=== PATIENT | male | born 1955 | race Caucasian/White ===

== ENCOUNTER 2021-10-06 12:05 | Inpatient (IN) | payer OTHER, SELFPAY ==
[~2021-10-06] VITALS: Ht 177.8 cm; Wt 76.7 kg
[~2021-10-06 12:05] MED LIST: ACET-9525 PO; BICA50TA47 PO; FERR325E14 PO; LACT10SO11 PO; PANT40PK PO; ROC1PM IV
--- NOTE | 2021-10-06 12:05 | NUR ---
BIBA BLS TO ER BED 7
[2021-10-06 12:13] VITALS: BP 96/72
--- NOTE | 2021-10-06 12:22 | NUR ---
IV ESTABLISHED, BLOOD COLLECTED AND WALKED TO LAB.
--- NOTE | 2021-10-06 12:29 | NUR ---
LINA COLLECTED AND WALKED TO LAB
[2021-10-06] MEDS ORDERED: NACL 0.9% 2,000 ML IV ONE (12:40)
--- NOTE | 2021-10-06 12:40 | NUR ---
Pt states unable to urinate at this time; states enlarged prostate. Urinal provided at bedside per request; pt will attempt to void in 20 mins.
--- NOTE | 2021-10-06 12:46 | NUR ---
DR. WILEY EVALUATING PATIENT AT BEDSIDE.
[2021-10-06] MEDS ORDERED: PANTOPRAZOLE 40 MG INJ VIAL IVP ONE (12:50)
[2021-10-06] MEDS ORDERED: cefTRIAXone 1,000 MG VIAL ONE (13:07)
--- NOTE | 2021-10-06 13:30 | NUR ---
PATIENT REPORTS L INDEX FINGER "PINS AND NEEDLES" SENSATION, DR. WILEY MADE AWARE. PENDING LAB RESULTS FOR TX.
[2021-10-06 13:45] LABS: BASOPHILS % (AUTO) 0.1 % (0.0-2.0); EOSINOPHILS % (AUTO) 0.2 % (0.0-4.0); HEMATOCRIT 20.5 % (36-52); LYMPHOCYTES # (AUTO) 0.6 K/uL (2.0-11.5); LYMPHOCYTES % (AUTO) 3.1 % (20.5-51.1); MEAN CORPUSCULAR HEMOGLOBIN 24 pg (27-31); MEAN CORPUSCULAR HGB CONC 32 g/dL (33-37); MEAN CORPUSCULAR VOLUME 76.2 fL (80-94); MONOCYTES # (AUTO) 0.3 K/uL (0.8-1.0); MONOCYTES % (AUTO) 1.6 % (1.7-9.3); NEUTROPHILS # (AUTO) 18.8 K/uL (1.8-7.7); PLATELET COUNT (AUTO) 236 K/uL (140-450); RED BLOOD CELL COUNT(AUTO) 2.69 MIL/uL (4.20-6.10); RED CELL DISTRIBUTION WIDTH 21.2 % (11.6-13.7); WHITE BLOOD COUNT (AUTO) 19.8 K/uL (4.8-10.8)
[2021-10-06 13:48] LABS: ALBUMIN 1.3 g/dL (3.4-5.0); ANION GAP 16.9 (8-16); POTASSIUM 5.9 mmol/L (3.5-5.1); TOTAL BILIRUBIN 0.3 mg/dL (0.0-1.0)
[2021-10-06 13:52] LABS: HEMOGLOBIN 6.5 g/dL (12.0-18.0)
[2021-10-06] MEDS ORDERED: HYDROcodone/APAP 5/325 MG 1 TAB TAB PO PRN (14:10)
[2021-10-06] MEDS ORDERED: ONDANSETRON 4 MG/2 ML VIAL IVP PRN (14:10)
[2021-10-06] MEDS ORDERED: MORPHINE SULFATE 2 MG/ML SYR IVP PRN (14:10)
[2021-10-06] MEDS ORDERED: ACETAMINOPHEN 325 MG TAB PO PRN (14:10)
[2021-10-06] MEDS ORDERED: MULT-2611 PO (14:17)
[2021-10-06] MEDS ORDERED: ONDA-188 PO (14:17)
[2021-10-06] MEDS ORDERED: ZINC50TA76 PO (14:17)
[2021-10-06] MEDS ORDERED: CHOL200072 PO (14:17)
[2021-10-06] MEDS ORDERED: TRAM50TA1 PO (14:17)
[2021-10-06] MEDS ORDERED: VITB12 PO (14:17)
[2021-10-06] MEDS ORDERED: DEXT1DRO4 OP (14:17)
[2021-10-06] MEDS ORDERED: ASCO-5 PO (14:17)
--- NOTE | 2021-10-06 14:19 | NUR ---
DR. KAPADIA EVALUATING PATIENT AT BEDSIDE.
--- NOTE | 2021-10-06 14:48 | NUR ---
RECEIVED REPORT FROM ED NURSE. AWAITING TRANSFER TO [facility]
[2021-10-06] MEDS: NACL 0.9% 1,000 ML IV SCH (15:07)
--- NOTE | 2021-10-06 15:10 | NUR ---
Patient will be admitted to care of DR KAPADIA. Admited to TELEMETRY. Will go to room 124A. Belongings list completed. Report to LEIGH MCDONALD.
--- NOTE | 2021-10-06 15:11 | NUR ---
Chart checked and completed. The patient's care was reviewed and supervised by Hyun Broussard RN.
--- NOTE | 2021-10-06 15:15 | NUR ---
PT TRANSFERRED TO MST 124A. PT STABLE
[2021-10-06 16:00] VITALS: BP 128/64
[2021-10-06] MEDS ORDERED: SUPREP BOWEL PREP KIT 354 ML SOLN.RECON PO ONE (18:15)
[2021-10-06] MEDS: SODIUM ZIRCONIUM CYCLOSILICATE 10 GM POWD.PACK PO SCH (18:28)
[2021-10-06] MEDS ORDERED: bisacodyL 5 MG TABEC PO SCH (18:30)
[2021-10-06] MEDS: SUPREP BOWEL PREP KIT 354 ML SOLN.RECON PO SCH ×2 (18:30→19:49)
--- NOTE | 2021-10-06 18:54 | NUR ---
PT REFUSED SUPREP. STATING "MY STOMACH ISN'T THAT BIG, I CANT DRINK THAT" Addendum: 10/06/21 at 1855 by Yanci Lewis RN RN NEHA MALDONADO
--- NOTE | 2021-10-06 19:38 | NUR ---
ENDORSED PT TO WEB OPERATIONS MANAGER NURSE.
--- NOTE | 2021-10-06 19:50 | NUR ---
PT AGREED TO DRINK BOWL PREP TOLERATED.
[2021-10-06 20:00] VITALS: BP 94/57
[2021-10-06 20:14] LABS: ANION GAP 19.1 (8-16); CARBON DIOXIDE 19.7 mmol/L (21-32); POTASSIUM 5.8 mmol/L (3.5-5.1)
[2021-10-06] MEDS: PANTOPRAZOLE 40 MG INJ VIAL IVP SCH (20:40)
[2021-10-06] MEDS: ALBUMIN HUMAN 25% 100 ML IV SCH (20:42)
--- NOTE | 2021-10-06 21:30 | NUR ---
messaged Dr almonte on potassium level urine output and renal US results
[2021-10-07] VITALS: BP 120/81
[2021-10-07 00:09] LABS: APPEARANCE,URINE CLOUDY (CLEAR); BILIRUBIN,URINE NEGATIVE (NEGATIVE); BLOOD, URINE 3+ (NEGATIVE); LEUKOCYTE ESTERASE ,URINE 3+ (NEGATIVE); NITRITE, URINE NEGATIVE (NEGATIVE); UGLUCOSE NEGATIVE (NEGATIVE)
[2021-10-07 00:10] LABS: COLOR,URINE STRAW (YELLOW)
[2021-10-07 00:12] LABS: RBC,URINE 11-20 (MOD) /HPF (0-5); WBC,URINE TOO MANY TO COUNT /HPF (0-5)
[2021-10-07] MEDS ORDERED: bisacodyL 5 MG TABEC PO SCH (00:15)
[2021-10-07] MEDS: NACL 0.9% 1,000 ML IV SCH (01:19)
[2021-10-07] MEDS: SUPREP BOWEL PREP KIT 354 ML SOLN.RECON PO SCH (01:26)
--- NOTE | 2021-10-07 02:41 | NUR ---
1 unit PRBC given. pt tolerarated it well. no reactgions noted.
[2021-10-07 04:00] VITALS: BP 123/69
[2021-10-07] MEDS: ALBUMIN HUMAN 25% 100 ML IV SCH ×2 (04:47→12:40)
[2021-10-07] MEDS ORDERED: SODIUM PHOSPHATE 118 ML ENEM RC SCH ×4 (06:00→07:30)
--- NOTE | 2021-10-07 06:23 | NUR ---
notified Dr Hernandez that pt BM not clear yet only had 1 large BM last night 1 small one this am after the fleets enema
--- NOTE | 2021-10-07 06:33 | NUR ---
dr Lovell messaged re preli result of BC - gm neg lay on gram stain . awaiting call back
--- NOTE | 2021-10-07 07:05 | NUR ---
PATIENT HAS BEEN SCREENED AND CATEGORIZED HIGH NUTRITION RISK. PATIENT WILL BE SEEN WITHIN 1-2 DAYS OF ADMISSION. 10/07/21-10/08/21 NANCY JOSEPH MS, RDN
--- NOTE | 2021-10-07 07:30 | NUR ---
RECEIVED REPORT FROM LIVESTOCK FEEDER NURSE.
[2021-10-07] MEDS ORDERED: MIDAZOLAM 5 MG/5 ML VIAL ONE (07:34)
[2021-10-07] MEDS ORDERED: fentaNYL citrate 0.05 MG/ML VIAL ONE (07:34)
--- NOTE | 2021-10-07 08:01 | NUR ---
PT TAKEN TO OR FOR COLONOSCOPY AND POSSIBLE EGD. PT STABLE
[2021-10-07] MEDS: PANTOPRAZOLE 40 MG INJ VIAL IVP SCH ×2 (08:02→20:36)
[2021-10-07] MEDS: SODIUM ZIRCONIUM CYCLOSILICATE 10 GM POWD.PACK PO SCH ×3 (08:02→17:30)
[2021-10-07] MEDS: MIDAZOLAM 2 MG/2 ML VIAL IVP SCH ×2 (08:05→08:30)
[2021-10-07] MEDS: fentaNYL citrate 0.05 MG/ML VIAL IVP SCH ×2 (08:06→08:30)
[2021-10-07 08:22] LABS: BASOPHILS % (AUTO) 0.1 % (0.0-2.0); LYMPHOCYTES % (AUTO) 3.7 % (20.5-51.1); PLATELET COUNT (AUTO) 149 K/uL (140-450)
[2021-10-07 08:34] LABS: ALBUMIN 1.9 g/dL (3.4-5.0); ANION GAP 22.9 (8-16); CARBON DIOXIDE 18.6 mmol/L (21-32); CREATININE 3.3 mg/dL (0.6-1.3); POTASSIUM 4.5 mmol/L (3.5-5.1); TOTAL BILIRUBIN 0.5 mg/dL (0.0-1.0)
--- NOTE | 2021-10-07 08:41 | NUR ---
PT RETURNED FROM COLONOSCOPY. UNABLE TO PERFORM, RESCHEDULED FOR 0800 10/08
[2021-10-07 08:55] LABS: EOSINOPHILS # (AUTO) 1.1 K/uL (0-0.4); EOSINOPHILS % (AUTO) 6.5 % (0.0-4.0); HEMATOCRIT 20.5 % (36-52); LYMPHOCYTES # (AUTO) 0.6 K/uL (2.0-11.5); MEAN CORPUSCULAR HEMOGLOBIN 26 pg (27-31); MEAN CORPUSCULAR HGB CONC 32 g/dL (33-37); MEAN CORPUSCULAR VOLUME 80.2 fL (80-94); MONOCYTES # (AUTO) 0.2 K/uL (0.8-1.0); MONOCYTES % (AUTO) 1.2 % (1.7-9.3); NEUTROPHILS # (AUTO) 15.3 K/uL (1.8-7.7); NEUTROPHILS % (AUTO) 88.5 % (42.2-75.2); RED BLOOD CELL COUNT(AUTO) 2.56 MIL/uL (4.20-6.10); RED CELL DISTRIBUTION WIDTH 22.7 % (11.6-13.7); WHITE BLOOD COUNT (AUTO) 17.3 K/uL (4.8-10.8)
[2021-10-07 08:59] LABS: HEMOGLOBIN 6.6 g/dL (12.0-18.0)
[2021-10-07] MEDS ORDERED: NACL 0.9% 1,000 ML IV SCH (09:15)
--- NOTE | 2021-10-07 09:16 | NUR ---
(10/07/21) RD INITIAL ASSESSMENT COMPLETED PLEASE REFER TO NUTRITION ASSESSMENT UNDER CARE ACTIVITY FOR ESTIMATED NUTRITIONAL NEEDS. RD RECOMMENDATIONS: 1. CONTINUE CLEAR LIQUID DIET MEDICALLY APPROPRIATE 2. CONSIDER REGULAR DIET ONCE MEDICALLY APPROPRIATE TO START ORAL DIET 3. CONSULT RDN PRN. 4. RD WILL F/U 2-3 DAYS; HIGH RISK. NANCY JOSEPH MS, RDN
[2021-10-07] MEDS ORDERED: SODIUM BICARBONATE 8.4% 150 MEQ in DEXTROSE 5% 1,000 ML IV SCH (10:00)
[2021-10-07 10:18] LABS: URINE SODIUM, RANDOM 147 mmol/l (40-220)
[2021-10-07 12:00] VITALS: BP 118/70
[2021-10-07] MEDS: MAGNESIUM CITRATE 300 ML BTL PO SCH ×2 (12:23→20:35)
--- NOTE | 2021-10-07 12:42 | NUR ---
PHARMACY TO BRING PT MEDICATION. ATTEMPTED TO CALL AND WALK TO PHARMACY WITH NO ANSWER. WILL TRY AGAIN AFTER LUNCH BREAK.
[2021-10-07] MEDS: bisacodyL 5 MG TABEC PO SCH ×2 (13:10→20:37)
[2021-10-07] MEDS: SODIUM BICARBONATE 8.4% 50 MEQ in NACL 0.45% 1,000 ML IV SCH (13:10)
--- NOTE | 2021-10-07 13:10 | NUR ---
OBTAINED IVF FROM PHARMACY. SUPERINTENDENT COMMISSARY STATED IT WAS NOT BROUGHT TO [facility] SINCE THEY WERE NOT CALLED AND INSTRUCTED TO MAKE IT.
--- NOTE | 2021-10-07 14:43 | NUR ---
PROCEDURE POSTPONED. PT NOTIFIED. PT NPO. WILL RESUME BOWEL PREP POST PROCEDURE
[2021-10-07 16:00] VITALS: BP 116/65
--- NOTE | 2021-10-07 17:57 | NUR ---
PT RESTING IN BED. NO S/S OF DISTRESS. CALL LIGHT IN REACH. PROVIDED PT WITH JELLO AND WATER AT BEDSIDE. ALL SAFETY MEASURES IN PLACE
--- NOTE | 2021-10-07 19:35 | NUR ---
ENDORSED PT TO STEAM CONDITIONER OPERATOR NURSE.
[2021-10-07 20:00] VITALS: BP 108/64
--- NOTE | 2021-10-07 20:10 | NUR ---
CALLED BLOOD BANK AND TALKED TO CARYN TO FOLLOWUP PRBC AVAILABILITY, STATED PT'S CROSSMATCH IS POSITIVE FOR ANTIBODIES AND WILL TAKE LONGER TO BE AVAILABLE, NOTIFIED ADEL THAT PT NEEDS AT LEAST 1 UNIT BEFORE SURGERY TOMORROW AT 0930, WILL KEEP ON FOLLOWING UP BLOOD BANK AND ALSO TOLD ADEL TO NOTIFY US WHEN BLOOD IS AVAILABLE, LEIGH RICHARDS MADE AWARE.
--- NOTE | 2021-10-07 20:13 | NUR ---
BLOOD BANK NOTIFIED THAT PT WILL HAVE SURGERY AT 0900 IN A.M. OF 10/08/21 AND THAT PT NEEDS AT LEAST ONE UNIT OF PRBCs TRANSFUSED BEFORE THEN. ORDER FOR TRANSFUSION IN CHART. CONSENT IN CHART. BLOOD BANK AWARE AND WILL NOTIFY (CALL) MST WHEN BLOOD IS AVAILABLE FOR P/U. PT IS ANTIBODY POSITIVE (+). HGB IS 6.6.
[2021-10-07] MEDS: MEROPENEM 500 MG in NACL 0.9% 50 ML IV SCH (20:37)
[2021-10-08] VITALS: BP 109/60
[2021-10-08] MEDS: SODIUM BICARBONATE 8.4% 50 MEQ in NACL 0.45% 1,000 ML IV SCH (01:00)
--- NOTE | 2021-10-08 01:32 | NUR ---
CALLED BLOOD BANK AND TALKED TO CISSE TO FOLLOW UP AVAILABILITY OF PRBC, STATED NOT YET AVAILABLE, LEIGH RICHARDS MADE AWARE.
--- NOTE | 2021-10-08 01:49 | NUR ---
All necessary IVF and Y-Tubing, and paperwork ready for administration of 1U PRBCs. Private Duty Nurse informed that compatible Blood remains unavailable at this time. Will await for notification by Blood Bank for change in current situation.
[2021-10-08 04:00] VITALS: BP 106/60
--- NOTE | 2021-10-08 05:32 | NUR ---
FOLLOW UP AVAILABILITY OF PRBC AT BLOOD BANK, TALKED TO TANNA, STATED BLOOD NOT YET AVAILABLE, LEIGH RICHARDS MADE AWARE.
[2021-10-08 06:00] LABS: HEMATOCRIT 23.2 % (36-52); HEMOGLOBIN 7.6 g/dL (12.0-18.0); MEAN CORPUSCULAR HEMOGLOBIN 26 pg (27-31); MEAN CORPUSCULAR HGB CONC 33 g/dL (33-37); MEAN CORPUSCULAR VOLUME 80.7 fL (80-94); PLATELET COUNT (AUTO) 118 K/uL (140-450); RED BLOOD CELL COUNT(AUTO) 2.87 MIL/uL (4.20-6.10); RED CELL DISTRIBUTION WIDTH 22.6 % (11.6-13.7); WHITE BLOOD COUNT (AUTO) 10.6 K/uL (4.8-10.8)
[2021-10-08] MEDS ORDERED: DEXTROSE 50% 50 ML SYR IVP ONE (06:41)
[2021-10-08 06:42] LABS: LYMPHOCYTES % (MANUAL) 1 % (20-46); MONOCYTES % (MANUAL) 0 % (5-12)
[2021-10-08] MEDS ORDERED: DEXTROSE 50% 50 ML SYR IVP SCH (06:45)
--- NOTE | 2021-10-08 06:49 | NUR ---
Blood Sugar redraw gave 32 as result. D50% IVP given via LAC site. Pt asymptomatic through entire episode.
--- NOTE | 2021-10-08 07:24 | NUR ---
BS =32, IVP D50%. REPEAT FS = 84. PT ASYMPTOMATIC THROUGHOUT EPISODE.
--- NOTE | 2021-10-08 07:25 | NUR ---
WILL ENDORSE TO DAY RN EPISODE OF HYPOGLYCEMIA AND RESOLUTION. ALSO, COMPATIBLE UNIT OF PRBCS STILL NOT FOUND BY ARC. [facility] WILL CONTINUE TO SEARCH FOR COMPATIBLE UNIT. Addendum: 10/08/21 at 0741 by Agency 09 RN RN LATEST BLOOD SUGAR = 84. PT ASYMPTOMATIC.
[2021-10-08] MEDS ORDERED: DEXTROSE 50% 50 ML SYR IVP PRN (07:40)
--- NOTE | 2021-10-08 07:50 | NUR ---
RECEIVED REPORT FROM THEATRICAL AGENT NURSE. PT UNABLE TO RECEIVE UNIT OF BLOOD, H/H IMPROVED IN MORNING LABS 7.6/23.2. WILL DETERMINE SURGICAL STATUS
[2021-10-08 08:00] VITALS: BP 97/57
[2021-10-08] MEDS: SODIUM ZIRCONIUM CYCLOSILICATE 10 GM POWD.PACK PO SCH (08:47)
[2021-10-08] MEDS: MEROPENEM 500 MG in NACL 0.9% 50 ML IV SCH ×2 (09:05→22:16)
[2021-10-08] MEDS: PANTOPRAZOLE 40 MG INJ VIAL IVP SCH ×2 (09:05→22:18)
--- NOTE | 2021-10-08 09:23 | NUR ---
PT TAKEN TO OR FOR STENT PLACEMENT.
[2021-10-08] MEDS ORDERED: DEXAMETHASONE 4 MG/ML VIAL ONE (09:57)
[2021-10-08] MEDS ORDERED: ONDANSETRON 4 MG/2 ML VIAL ONE (09:57)
[2021-10-08] MEDS ORDERED: fentaNYL citrate 0.05 MG/ML VIAL ONE (09:57)
[2021-10-08] MEDS ORDERED: PROPOFOL 200 MG/20 ML VIAL IV ONE (09:57)
[2021-10-08] MEDS: BLOOD GLUCOSE MONITORING 1 DEV DEV FS SCH ×2 (11:01→11:03)
--- NOTE | 2021-10-08 11:50 | NUR ---
PT RETURNED TO MST 124A. PT STABLE. NO S/S OF DISTRESS. IV FLUIDS RUNNING. CALL LIGHT IN REACH. ALL SAFETY MEASURES IN PLACE.
[2021-10-08 12:00] VITALS: BP 109/64
[2021-10-08 13:18] LABS: ALBUMIN 1.7 g/dL (3.4-5.0); ANION GAP 21.4 (8-16); CARBON DIOXIDE 19.4 mmol/L (21-32); CREATININE 3.5 mg/dL (0.6-1.3); POTASSIUM 3.8 mmol/L (3.5-5.1); TOTAL BILIRUBIN 0.6 mg/dL (0.0-1.0)
[2021-10-08] MEDS: SODIUM BICARBONATE 8.4% 50 MEQ in DEXT 5% / NACL 0.45% 1,000 ML IV SCH (13:55)
--- NOTE | 2021-10-08 14:06 | NUR ---
PT CLEANED AND CHANGED. FOOD TRAY AT BEDSIDE. WOUND CARE PROVIDED. NO S/S OF DISTRESS. CALL LIGHT IN REACH. ALL SAFETY MEASURES IN PLACE
[2021-10-08 16:00] VITALS: BP 107/62
--- NOTE | 2021-10-08 16:55 | NUR ---
NOTIFIED MD THAT PT IS COMPLAINING OF ANAL PAIN, STATING THAT HE IS ONLY HAVING BM'S OF "ACID AND WATER". EDUCATED PT ON THE IMPORTANCE OF EATING AND STAYING HYDRATED. PT IS REFUSING TO EAT OR DRINK ANYTHING PROVIDED TO HIM.
--- NOTE | 2021-10-08 18:25 | NUR ---
PT STABLE. NO S/S OF DISTRESS. SAT PT UP AND OFFERED FOOD AND DRINK, ITEMS IN REACH. CALL LIGHT IN REACH. ALL SAFETY MEASURES IN PLACE
--- NOTE | 2021-10-08 19:30 | NUR ---
RECEIVED PT FROM AM NURSE FOR CONTINUITY OF CARE.PT IS STABLE ,AOX4,IV INTACT AND PATENT,NO DISTRESS NOTED
--- NOTE | 2021-10-08 19:31 | NUR ---
ENDORSED PT TO PIANO PLAYER NURSE
[2021-10-08 20:00] VITALS: BP 118/73
--- NOTE | 2021-10-08 22:00 | NUR ---
ALL MEDS GIVEN TOLERATED WELL, ALL SAFETY MEASURES IN PLACE, NO DISTRESS NOTED
[2021-10-09] VITALS: BP 124/63
--- NOTE | 2021-10-09 01:00 | NUR ---
PATIENT SLEEPING,BREATHING EVEN AND UNLABORED,ALL SAFETY MEASURES IN PLACE
[2021-10-09] MEDS: SODIUM BICARBONATE 8.4% 50 MEQ in DEXT 5% / NACL 0.45% 1,000 ML IV SCH (03:15)
[2021-10-09 04:00] VITALS: BP 129/66
--- NOTE | 2021-10-09 04:00 | NUR ---
PATIENT CLEANED AND CHANGED,SODIUM BICARB RUNNING AT 75CC/HR IV INTACT, NO DISTRESS NOTED
[2021-10-09 05:25] LABS: BASOPHILS % (AUTO) 0.2 % (0.0-2.0); EOSINOPHILS # (AUTO) 0.1 K/uL (0-0.4); EOSINOPHILS % (AUTO) 0.7 % (0.0-4.0); HEMATOCRIT 20.8 % (36-52); LYMPHOCYTES # (AUTO) 0.5 K/uL (2.0-11.5); LYMPHOCYTES % (AUTO) 4.5 % (20.5-51.1); MEAN CORPUSCULAR HEMOGLOBIN 26 pg (27-31); MEAN CORPUSCULAR HGB CONC 34 g/dL (33-37); MONOCYTES # (AUTO) 0.2 K/uL (0.8-1.0); MONOCYTES % (AUTO) 2.2 % (1.7-9.3); NEUTROPHILS # (AUTO) 9.7 K/uL (1.8-7.7); NEUTROPHILS % (AUTO) 92.4 % (42.2-75.2); PLATELET COUNT (AUTO) 57 K/uL (140-450); RED BLOOD CELL COUNT(AUTO) 2.66 MIL/uL (4.20-6.10); RED CELL DISTRIBUTION WIDTH 22.9 % (11.6-13.7); WHITE BLOOD COUNT (AUTO) 10.5 K/uL (4.8-10.8)
[2021-10-09 05:37] LABS: ANION GAP 14.4 (8-16); CARBON DIOXIDE 25.5 mmol/L (21-32); CREATININE 2.9 mg/dL (0.6-1.3)
[2021-10-09 05:56] LABS: POTASSIUM 2.9 mmol/L (3.5-5.1)
--- NOTE | 2021-10-09 06:00 | NUR ---
PATIENT IS AWAKE ,ALERT ORIENTED,STABLE CONDITION,NO DISTRESS NOTED
[2021-10-09 08:00] VITALS: BP 131/76
--- NOTE | 2021-10-09 08:00 | NUR ---
RECEIVED REPORT FROM NIGHTSHIFT NURSE. PT A/O X4. ABLE TO MAKE NEEDS KNOWN. NO SOB OR RESPIRATORY DISTRESS. ON RA. RR EVEN & UNLABORED. ON TELE. LLE DRESSING C/D/I. IVF INFUSING. ON REGULAR DIET HOWEVER, STATES HE PREFERS DIET SIMILAR TO CLEAR LIQUID DIET. NEEDS ALL MET AT THIS TIME. IN NO DISTRESS. WILL MONITOR CLOSELY.
[2021-10-09] MEDS ORDERED: POTASSIUM CHLORIDE 10 MEQ TABER PO SCH (08:15)
[2021-10-09] MEDS: DEXT 5% / NACL 0.9% 1,000 ML IV SCH ×3 (08:40→21:01)
[2021-10-09] MEDS: PANTOPRAZOLE 40 MG INJ VIAL IVP SCH ×2 (09:00→20:20)
[2021-10-09] MEDS ORDERED: POTASSIUM CHLORIDE 40 MEQ, LIDOCAINE MPF 1% 25 MG in NACL 0.9% 250 ML IV SCH (09:00)
[2021-10-09] MEDS: MEROPENEM 500 MG in NACL 0.9% 50 ML IV SCH ×2 (09:00→20:21)
--- NOTE | 2021-10-09 09:15 | NUR ---
WOUND CARE EVALUATION NOTE; PT. ADMITTED WITH LLE CELLULITIS WOUND. PER PT. HE STAY AT [facility] AND A WOUND DOCTOR VISITS HIM REGULARLY,PER PT. HIS LEG WAS TREATED WITH XEROFORM DRESSING. LLE CELLULITIS WOUND 27X12 CM CIRCUMFERENCE AREA WITH MULTIPLE CLUSTERS PARTIAL THICKNESS SKIN LOSS SUPERFICIAL DEPTH WOUND BEDS ARE RED, MOIST ,NO ODOR. MUKUL-WOUNDS SKIN DENUDED , PALE PINK, NO ODOR. PAIN 3/10. POC DISCUSSED WITH PT. PT.VERBALIZES UNDERSTANDING. POC DISCUSSED WITH PRIMARY RN. RECOMMENDATIONS -CLEANSE LLE WITH NS, PAT DRY, APPLY XEROFORM DRESSING, COVER WITH DRY DRESSING AND WRAP WITH KERLIX ROLL,LOOSELY, DRESSING CHANGE DAILY AND PRN IF SOILING.
[2021-10-09 12:00] VITALS: BP 134/77
--- NOTE | 2021-10-09 12:00 | NUR ---
PT IN NO DISTRESS. RR EVEN & UNLABORED. NEEDS ALL MET AT THIS TIME. SAFE PRECAUTIONS IN PLACE. WILL MONITOR CLOSELY.
[2021-10-09] MEDS: NON ADHERENT DRESSING TP SCH (12:33)
--- NOTE | 2021-10-09 15:28 | NUR ---
DC PLANNING: THE PATIENT PRESENTED TO THE ED FROM [facility] WITH C/O DECREASED H&H AND N/V. STOOL GIUAC POSITIVE IN ED, ORDERS FOR 2 UNITS PRBC'S. 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 HE IS FOLLOWED BY DR. Bess RIOS IN [place] FOR ONCOLOGY AND DR KOSTAS KAPOOR FOR PAIN. NOW WITH AWILDA COMPARED TO LAST ADMISSION HERE, CONSULTS ORDERED WITH NEPHROLOGY, ID, UROLOGY, WOUND CARE, AND GI. RENAL US SHOWED BILAT HYDRONEPHROSIS AND LEFT INTRARENAL STONES, CT ABD SHOWS STONES IN THE URETEROPELVIC JUNCTIONS AND DISTAL LEFT URETER. TO OR YESTERDAY FOR CYSTOSCOPY WITH BILATERAL STENT PLACEMENT, ON MEREM IV. PER THE ATTENDING MD PATIENT MIGHT DC IN AM AND WILL CONTINUE ON MEREM IV FOR ANOTHER 7 DAYS. JASMIN SPOKE WITH THE PATIENT AT BEDSIDE REGARDING HIS RETURN TO [facility]. HE STATES THAT HE HAS BEEN BEDBOUND FOR ABOUT SIX MONTHS AND HAS A NON-HEALING WOUND ON HIS LEFT LEG RELATED TO A BROWN RECLUSIVE SPIDER BITE FROM 40 YEARS AGO. HE IS IN AGREEMENT WITH RETURNING TO [facility] WHEN HE'S CLINICALLY STABLE, JASMIN ALSO SPOKE WITH JARRED AT [place] AND ENDORSED THAT THE PATIENTS URINE CULTURE IS POSITIVE FOR PROTEUS. JASMIN WILL FOLLOW. Addendum: 10/09/21 at 1546 by Haylee Tiwari CM Amended: Links added. Addendum: 10/10/21 at 1343 by Haylee Tiwari CM DC PLANNING: PATIENT TO DC TO [facility] TODAY, ACCEPTED TO ROOM 14C UNDER DR CHOWDHURY. TRANSPORT ARRANGED WITH [facility] [employer], EXHA[employer] EQUIPMENT OPERATOR TIME 1530 VIA [employer]. CM SPOKE WITH THE PATIENT AT BEDSIDE AND HE IS IN AGREEMENT WITH RETURNING TO [facility] TODAY. CM WILL FOLLOW.
[2021-10-09 18:07] VITALS: BP 115/69
--- NOTE | 2021-10-09 19:59 | NUR ---
PT STABLE. ENDORSED CONTINUITY OF CARE TO NIGHTSHIFT.
[2021-10-09 20:55] VITALS: BP 135/74
[2021-10-09] MEDS ORDERED: cefTRIAXone 1,000 MG VIAL ONE (23:58)
[2021-10-10 00:33] VITALS: BP 116/77
[2021-10-10 04:00] VITALS: BP 134/84
[2021-10-10 05:28] LABS: BASOPHILS % (AUTO) 0.5 % (0.0-2.0); EOSINOPHILS # (AUTO) 0.1 K/uL (0-0.4); EOSINOPHILS % (AUTO) 1.5 % (0.0-4.0); HEMATOCRIT 22.3 % (36-52); HEMOGLOBIN 7.4 g/dL (12.0-18.0); LYMPHOCYTES # (AUTO) 0.7 K/uL (2.0-11.5); LYMPHOCYTES % (AUTO) 7.3 % (20.5-51.1); MEAN CORPUSCULAR HEMOGLOBIN 26 pg (27-31); MEAN CORPUSCULAR HGB CONC 33 g/dL (33-37); MONOCYTES # (AUTO) 0.2 K/uL (0.8-1.0); NEUTROPHILS # (AUTO) 8.4 K/uL (1.8-7.7); NEUTROPHILS % (AUTO) 88.7 % (42.2-75.2); PLATELET COUNT (AUTO) 51 K/uL (140-450); RED BLOOD CELL COUNT(AUTO) 2.82 MIL/uL (4.20-6.10); RED CELL DISTRIBUTION WIDTH 23.2 % (11.6-13.7); WHITE BLOOD COUNT (AUTO) 9.5 K/uL (4.8-10.8)
[2021-10-10 06:53] LABS: ANION GAP 13.9 (8-16); CARBON DIOXIDE 24.6 mmol/L (21-32); POTASSIUM 3.5 mmol/L (3.5-5.1)
[2021-10-10 08:00] VITALS: BP 124/79
--- NOTE | 2021-10-10 08:00 | NUR ---
RECEIVED REPORT FROM [facility]. PT A/O X3. ABLE TO MAKE NEEDS KNOWN. NO SOB OR RESPIRATORY DISTRESS. ON RA. RR EVEN & UNLABORED. ON TELE. LAC #20 DRESSING C/D/I. LLE DRESSING C/D/I. NO VISIBLE DRAINAGE. BECKER VIA GRAVITY. NEEDS ALL MET AT THIS TIME. SAFETY MEASURES IN PLACE. WILL CONTINUE TO MONITOR CLOSELY.
[2021-10-10] MEDS: PANTOPRAZOLE 40 MG INJ VIAL IVP SCH (10:04)
[2021-10-10 12:00] VITALS: BP 117/75
[2021-10-10] MEDS: NON ADHERENT DRESSING TP SCH (12:56)
--- NOTE | 2021-10-10 13:00 | NUR ---
PT IV DRESSING REINFORCED. PT IN NO DISTRESS. ON RA. STABLE. SAFE PRECAUTIONS IN PLACE. WILL CONTINUE TO MONITOR.
--- NOTE | 2021-10-10 13:02 | NUR ---
10/10/21 RD FOLLOW UP COMPLETED PLEASE REFER TO NUTRITION ASSESSMENT UNDER CARE ACTIVITY FOR ESTIMATED NUTRITIONAL NEEDS. 1. CONTINUE REGULAR DIET MEDICALLY APPROPRIATE 2. RECOMMEND ENSURE BID PER RD PROTOCOL -WILL PROVIDE 700 KCAL AND 40 GM PROTEIN DAILY 3. MONITOR NUTRITION-RELATED LABS 4. RD WILL F/U 3-5 DAYS; MODERATE RISK. ALEXANDRE GOMEZ RD
[2021-10-10] MEDS ORDERED: ROC2I IV (13:37)
[2021-10-10 14:35] VITALS: BP 117/75
[2021-10-10 15:07] VITALS: BP 117/75
--- NOTE | 2021-10-10 15:20 | NUR ---
REPORT GIVEN TO THERESA EARL BY CHARGE NURSE.
--- NOTE | 2021-10-10 15:30 | NUR ---
PT STABLE. DISCHARGE INSTRUCTIONS GIVEN. PT VERBALIZED UNDERSTANDING. BECKER CATH LEFT IN PLACE PER MD ORDER. WHEELED OUT VIA [employer].
--- NOTE | 2021-10-11 07:40 | NUR ---
PHYSICAL THERAPY CO-SIGN The Physical Therapy Progress Notes documented by Pick [employer]over have been reviewed. Reviewed/Co-Signed by: Becky Silva Documentation Done by: GARY CASAS PTA Addendum: 10/11/21 at 0740 by Becky Silva PT Amended: Links added.
== END 2021-10-10 15:53 | DRG 720 ==
LOC: MED 12:05 → MTU 14:10
PROVIDERS: ADMIT Internal Medicine; ATTEND Internal Medicine
PROC: 30233N1 Transfusion of Nonautologous Red Blood Cells into Peripheral Vein, Percutaneous Approach (ICD-10-PCS; 2021-10-06)
PROC: 0T788DZ Dilation of Bilateral Ureters with Intraluminal Device, Via Natural or Artificial Opening Endoscopic (ICD-10-PCS; principal; 2021-10-08 09:30)
DX: A41.59 Other Gram-negative sepsis (principal); N17.0 Acute kidney failure with tubular necrosis; E43 Unspecified severe protein-calorie malnutrition; D69.6 Thrombocytopenia, unspecified; C79.51 Secondary malignant neoplasm of bone; C61 Malignant neoplasm of prostate; E87.1 Hypo-osmolality and hyponatremia; K92.2 Gastrointestinal hemorrhage, unspecified; E87.5 Hyperkalemia; D50.9 Iron deficiency anemia, unspecified; N13.9 Obstructive and reflux uropathy, unspecified; I12.9 Hypertensive chronic kidney disease with stage 1 through stage 4 chronic kidney disease, or unspecified chronic kidney disease; K80.20 Calculus of gallbladder without cholecystitis without obstruction; N13.6 Pyonephrosis; M48.54XA Collapsed vertebra, not elsewhere classified, thoracic region, initial encounter for fracture; N18.9 Chronic kidney disease, unspecified; Z20.822 Contact with and (suspected) exposure to COVID-19; E66.9 Obesity, unspecified; Z79.899 Other long term (current) drug therapy; Z68.24 Body mass index [BMI] 24.0-24.9, adult
CPT/HCPCS: 36415; 36430; 71045; 76770; 80048; 80053; 81001; 82728; 82948; 83540; 83605; 83735; 84100; 84154; 84156; 84300; 84484; 85025; 85610; 85730; 86886; 86900; 86901; 86920; 87040; 87086; 93005; 96361; 96375; 97110; 97163-GP; 97530; 99291; C1769; C2617; C9113; J0696; J1100; J2001; J2185; J2250; J2405; J2704; J3010; J3480; J3490; J7030; J7060; J7120; P9016; P9046; Q0092; Q9967